=== PATIENT | female | born 1960 | race Native Hawaiian/Other Pacific Islander ===

== ENCOUNTER 2017-07-31 09:44 | Emergency (ER) | payer OTHER ==
[2017-07-31 09:44] VITALS: BMI 31.6
[2017-07-31 09:56] VITALS: RESP 18; TEMP 97.7
--- NOTE | 2017-07-31 10:26 | C.PDOC ---
History Of Present Illness 57 yr old female presents to the ER with complaints of left knee pain for the past 2 days. Patient states she slipped on a wet floor, reports was holding onto something and did not have an actual fall. Patient states she feels her knee moved in a awkward position and now has pain. Patient states pain is sharp and worse with movement and weight bearing. Denies direct trauma, leg pain, back pain, foot pain, weakness or numbness. Time Seen by Provider: 07/31/17 10:05 Chief Complaint (Nursing): Lower Extremity Problem/Injury History Per: Patient History/Exam Limitations: no limitations Onset/Duration Of Symptoms: Days (2) Current Symptoms Are (Timing): Still Present Past Medical History Reviewed: Historical Data, Nursing Documentation, Vital Signs Vital Signs: Last Vital Signs Temp 97.7 F 07/31/17 09:52 Pulse 71 07/31/17 10:43 Resp 18 07/31/17 10:43 BP 132/78 07/31/17 10:43 Pulse Ox 98 07/31/17 10:43 - Medical History PMH: HTN, Hypercholesterolemia Family History: States: CAD - Social History Hx Alcohol Use: No Hx Substance Use: No - Immunization History Hx Tetanus Toxoid Vaccination: No Hx Influenza Vaccination: Yes Hx Pneumococcal Vaccination: No Review Of Systems Except As Marked, All Systems Reviewed And Found Negative. Musculoskeletal: Positive for: Other ((+) Left knee pain.). Negative for: Back Pain, Leg Pain, Foot Pain Neurological: Negative for: Weakness, Numbness Physical Exam - Physical Exam Additional Physical Exam Comments: Appears: Well Appearing, Non-toxic Skin: Normal Color Head: Atraumatic. Normacephalic. Eye(s): bilateral: EOMI Oral: Moist mucosa. Neck: No Midline Cervical Tenderness, Supple Chest: No Deformity, No Tenderness Respiratory: No Accessory Muscle Use Gastrointestinal/Abdominal: Soft. No Tenderness. No guarding. No rebound. Back: No Vertebral Tenderness. No lumbar tenderness. No spine tenderness. Extremity: Full ROM. Left Knee - Tenderness to the lateral knee. Mild edema. No tib/fib tenderness. Pulses: Left DP Pulses 2+. Neurological/Psych: Alert. Oriented x3. Gait: Steady. ED Course And Treatment O2 Sat by Pulse Oximetry: 99 (RA) Pulse Ox Interpretation: Normal Progress Note: Patient offered pain medication but declined. Medical Decision Making Medical Decision Making: PLAN: * X-Ray - Left Knee X-Ray - Left Knee No fx or dislocation as read by me. EARNESTINE wrap applied. Patient wishes to return to work today. Discharged, f/u PMD, obtain MRI for persistent pain, return to ED for worsening pain, edema, erythema , or any other problem. Disposition - Disposition Referrals: Viviana Gordon MD [Non-Staff] - Disposition: HOME/ ROUTINE Disposition Time: 10:46 Condition: STABLE Instructions: Knee Pain (ED) Forms: [employer] (Yakut) - Clinical Impression Clinical Impression: Knee pain - Scribe Statement The provider has reviewed the documentation as recorded by the Scribe Tianna Hodgson Provider Attestation: All medical record entries made by the Scribe were at my direction and personally dictated by me. I have reviewed the chart and agree that the record accurately reflects my personal performance of the history, physical exam, medical decision making, and the department course for this patient. I have also personally directed, reviewed, and agree with the discharge instructions and disposition.
[2017-07-31 10:44] VITALS: BP 132/78; PULSE 71
[2017-07-31 10:47] VITALS: O2SAT 99
--- NOTE | 2017-07-31 11:30 | RAD ---
PROCEDURE: Left Knee Radiographs. HISTORY: Pain. COMPARISON: None. FINDINGS: BONES: No destructive bony lesions appreciated there is no displaced fracture. JOINTS: Medial femorotibial compartment appears narrowed more so than previously shown on prior MRI 09/14/2013 suggesting worsening osteoarthritis. There is a mild suprapatellar bursa effusion identified. JOINT EFFUSION: As above. OTHER FINDINGS: None. IMPRESSION: Interval progression of degenerative joint disease without fracture or dislocation identified. No destructive bony lesion identified.
== END 2017-07-31 10:53 | disposition home or self-care (01) ==
LOC: C.ER 09:44
DX: M25.562 Pain in left knee (principal)